=== PATIENT | female | born 1960 | race African-American/Black ===

== ENCOUNTER 2016-12-11 09:09 | Day surgery (SDC) | payer BC ==
[2016-12-11] VITALS (8 sets, daily range): BP systolic 115–140; BP diastolic 75–87; PULSE 47–66; TEMP 97.6–98
[~2016-12-11] VITALS: Ht 175.3 cm; Wt 69.3 kg
[~2016-12-11 09:09] MED LIST: AMOXICILLI250 MG/5 M PO; AUGMENTIN 875 M1 TAB PO; BENTYL 20MG TAB20 MG PO; CEPHALEXIN500 M1 PO; FLEXERIL10 MG PO; LORTAB 10/500 51 TAB PO; LORTAB 5/500 501 TAB PO; PERCOCET 325 MG1 TA2 PO; PERCOCET 325 MG1 TAB PO; ZYRTEC10 M1 PO
[2016-12-11] MEDS ORDERED: TYLENOL 500MG500 MG PO (15:04)
[2016-12-11] MEDS ORDERED: ROXICODONE 55 MG/TAB PO (15:05)
== END 2016-12-11 17:20 | disposition home or self-care (01) ==
LOC: SDCO 09:09
DX: K40.90 Unilateral inguinal hernia, without obstruction or gangrene, not specified as recurrent (principal); K66.0 Peritoneal adhesions (postprocedural) (postinfection); J30.9 Allergic rhinitis, unspecified; G89.29 Other chronic pain; Z82.49 Family history of ischemic heart disease and other diseases of the circulatory system; Z80.0 Family history of malignant neoplasm of digestive organs; Z80.8 Family history of malignant neoplasm of other organs or systems; Z83.3 Family history of diabetes mellitus; Z82.61 Family history of arthritis; Z87.891 Personal history of nicotine dependence
CPT/HCPCS: A4315; C1781; J0690; J1100; J1170; J2175; J2405; J2704; J3010; J7120

== ENCOUNTER → 2017-01-10 | Outpatient (CLI) | payer BC ==
[~2017-01-10] MED LIST changes: +ROXICODONE 55 MG/TAB PO; +TYLENOL 500MG500 MG PO
== END ==
LOC: MHCPAIN 10:21
DX: G89.29 Other chronic pain (principal); M54.5 Low back pain; M79.672 Pain in left foot; M79.2 Neuralgia and neuritis, unspecified; F17.210 Nicotine dependence, cigarettes, uncomplicated
CPT/HCPCS: G0463

== ENCOUNTER → 2017-03-12 | Outpatient (CLI) | payer BC | LOC: MHCPAIN 10:15 | DX: G89.29 Other chronic pain (principal); M47.817 Spondylosis without myelopathy or radiculopathy, lumbosacral region; M54.16 Radiculopathy, lumbar region; M25.579 Pain in unspecified ankle and joints of unspecified foot | CPT/HCPCS: G0463 ==

== ENCOUNTER → 2017-04-25 | Outpatient (CLI) | payer OTHER, BC | LOC: MHCPAIN 10:38 | DX: G89.29 Other chronic pain (principal); M47.27 Other spondylosis with radiculopathy, lumbosacral region; M25.579 Pain in unspecified ankle and joints of unspecified foot; F17.210 Nicotine dependence, cigarettes, uncomplicated | CPT/HCPCS: G0463 ==

== ENCOUNTER → 2017-08-25 | Outpatient (CLI) | payer OTHER | LOC: COL.RAD 09:28 | DX: R10.11 Right upper quadrant pain (principal) ==

== ENCOUNTER 2019-08-07 12:42 | Emergency (ER) | payer OTHER ==
[~2019-08-07] VITALS: Ht 175.3 cm; Wt 77.1 kg
[~2019-08-07 12:42] MED LIST changes: +DESYREL 50MG50 MG PO; +DOXYCYCLINE 10100 MG PO; +ECHINACEA 5001 EACH PO; +MEDROL 4MG DOSPA4 MG PO; +PREDNISONE 5MG5 MG PO; +PREDNISONE20 MG PO; +ZITHROMAX Z PA250 MG PO; +ZITHROMAX500 M2 PO
[2019-08-07 12:48] VITALS: TEMP 98.3
[2019-08-07] MEDS ORDERED: PREDNISONE20 MG PO (15:01)
[2019-08-07 15:50] VITALS: BP 129/90; PULSE 96
[2019-08-07] MEDS ORDERED: VENTOLIN0.09 MG IH (15:51)
== END 2019-08-07 16:00 | disposition home or self-care (01) ==
LOC: COL.ER 12:42
DX: J45.901 Unspecified asthma with (acute) exacerbation (principal)
CPT/HCPCS: J1200; J2930; J7030

== ENCOUNTER → 2019-08-22 | Emergency (ER) | payer OTHER ==
[~2019-08-22] VITALS: Ht 175.3 cm; Wt 77.3 kg
[~2019-08-22] MED LIST changes: +VENTOLIN0.09 MG IH
[2019-08-22 00:13] VITALS: BP 122/81; PULSE 125; TEMP 98.5
[2019-08-22 01:05] LABS: BASO % 0.2 % (0.0-2.0); EOS # 0.7 (0.0-0.7); EOS % 5.1 % (0-4.0); GRAN % 68.3 % (42.2-75.2); HEMATOCRIT 41.4 % (37.0-47.0); HEMOGLOBIN 13.9 g/dl (12.5-16.0); LYMPH # 2.8 (1.2-3.4); LYMPH % 21.3 % (20.0-51.0); MEAN CELL VOLUME 92 fl (80.0-100.0); MEAN CORPUSCULAR HEMOGLOBIN 31 pg (27.0-31.0); MEAN CORPUSCULAR HGB CONC 34 g/dl (33.0-37.0); MEAN PLATELET VOLUME 9.5 fl (7.4-10.4); MONO # 0.6 (0.1-0.6); MONO % 4.8 % (1.7-9.3); PLATELET COUNT 180 K/mm3 (130-400); RED BLOOD COUNT 4.52 M/mm3 (4.10-5.30); REDCELL DISTRIBUTION WIDTH-CV 12.8 % (11.5-14.5)
[2019-08-22 01:08] LABS: PROTHROMBIN TIME 11.5 SECONDS (9.7-12.8)
[2019-08-22 01:16] LABS: ALANINE AMINOTRANSFERASE 17 U/L (4-34); ALBUMIN 4.4 gm/dL (3.5-5.0); ALKALINE PHOSPHATASE 76 U/L (50-136); ANION GAP 8 mmol/L (7-16); AST,SGOT 26 U/L (15-37); BILIRUBIN,TOTAL 0.5 mg/dL (0.0-1.0); BLOOD UREA NITROGEN 12 mg/dL (7-17); CALCIUM 10.5 mg/dL (8.4-10.2); CARBON DIOXIDE 27 mmol/L (22-30); CHLORIDE 105 mmol/L (98-107); CREATININE, serum 0.98 (0.52-1.25); GLUCOSE 113 mg/dL (74-106); POTASSIUM 3.6 mmol/L (3.4-5.0); SODIUM 139 mmol/L (137-145)
[2019-08-22 01:25] LABS: D-DIMER < 200.00 ng/mLDDu (200-230)
[2019-08-22 01:52] LABS: TROPONIN-I < 0.012 ng/mL (0.000-0.035)
== END ==
LOC: COL.ER 00:05
PROVIDERS: Emergency Medicine
DX: J45.901 Unspecified asthma with (acute) exacerbation (principal); Z79.52 Long term (current) use of systemic steroids
CPT/HCPCS: J0696; J2930; J3105; J3475; J7030

== ENCOUNTER → 2020-01-11 | Outpatient (CLI) | payer OTHER ==
--- NOTE | 2020-01-11 13:30 | NUR ---
Patient "Very pissed off" at her check-in process today. Would like to speak to a regional merchandising manager regarding registration staff. Patient also being rescheduled due to taking Symbicort this morning and having caffeine at breakfast and lunch. Proper instructions sent home with patient. Had Mark speak with patient at this time. Darwin Lin, [employer]NA[employer]CE
== END ==
LOC: COL.PUL 12:44
DX: R06.02 Shortness of breath (principal)

== ENCOUNTER → 2020-03-06 | Outpatient (CLI) | payer OTHER | LOC: COL.PUL 09:52 | DX: R06.02 Shortness of breath (principal); Z87.891 Personal history of nicotine dependence | CPT/HCPCS: J7674 ==

== ENCOUNTER 2023-07-17 07:55 | Day surgery (SDC) | payer OTHER ==
[~2023-07-17] VITALS: Ht 175.3 cm; Wt 77.8 kg
[~2023-07-17 07:55] MED LIST changes: +LR 1,000 ML IV SCH; +Ondansetron 4 MG/2 ML VIAL IV PRN
[2023-07-17 08:00] VITALS: BP 134/81; PULSE 54; TEMP 97
[2023-07-17] MEDS ORDERED: ORIGANUM OIL 1 M1 ML (08:29)
[2023-07-17] MEDS ORDERED: TURMERIC500 MG PO (08:30)
[2023-07-17] MEDS ORDERED: OLIVE LEAF PO (08:30)
[2023-07-17] MEDS ORDERED: PHARMASSURE ZIN50 MG PO (08:30)
[2023-07-17] MEDS ORDERED: VITAMIN D 400400 IU PO (08:31)
[2023-07-17] MEDS ORDERED: CENTRUM SILVER1 TAB PO (08:32)
[2023-07-17 10:35] VITALS: BP 115/47; PULSE 60; TEMP 97
[2023-07-17 10:50] VITALS: BP 142/87; PULSE 64
[2023-07-17 11:05] VITALS: BP 145/91; PULSE 62
--- NOTE | 2023-07-17 11:25 | NUR ---
1021-DR KINGSLEY DISCUSSING FINDINGS WITH PT'S . 1035-PT TO BAY 3 PER CART FROM PROCEDURE ROOM. PT AMBULATED TO CHAIR WITH STANDBY ASSIST. REPORT RECEIVED. VS OBTAINED. CALL LIGHT WITHIN REACH. PT DENIES ANY NEEDS AT THIS TIME. 1040-PT TOELRATING JUICE AND MUFFIN. 1105-IV DC'D AT THIS TIME. 1107-DR KINGSLEY AT BEDSIDE DISCUSSING FINDINGS WITH PT. 1110-DISCHARGE EDUCATION COMPLETED WITH PT AND HER . VERBALIZED UNDERSTANDING OF HOME AND FOLLOW UP CARE. ALL QUESTIONS ANSWERED. DISCHARGE PAPERWORK GIVEN TO PT. PT ABLE TO DRESS SELF WITHOUT ASSISTANCE. 1125-PT OFF THE UNIT PER WHEELCHAIR. PT DISCHARGED TO HOME WITH HER PER PERSONAL VEHICLE.
== END 2023-07-17 11:25 | disposition home or self-care (01) ==
LOC: SDCO 07:55
DX: Z12.11 Encounter for screening for malignant neoplasm of colon (principal); Z87.891 Personal history of nicotine dependence
CPT/HCPCS: J2704; J7120